=== PATIENT | female | born 1990 | race Caucasian/White ===

== ENCOUNTER 2018-01-05 22:29 | Emergency (ER) | payer BC ==
[2018-01-05 23:02] LABS: Bilirubin Negative (Negative); Blood, Urine Negative (Negative); Clarity CLEAR (Clear); Glucose, Urine (Dipstick) Negative (Negative); Leukocyte Negative (Negative); Nitrite Negative (Negative); Protein, Urine (Dipstick) Negative (Neg-Trace); Specific Gravity, Urine 1.021 (1.002-1.036)
[2018-01-05 23:19] LABS: #Eosinphils 0.1 thou/uL (0.0-0.7); #Lymphocytes 1.3 thou/uL (1.20-3.40); #Monocytes 0.5 thou/uL (0.11-0.59); #Neutrophils 5.3 thou/uL (1.40-6.50); %Basophils 0.5 % (0.0-1.0); %Eosinophils 0.9 % (0.0-10.0); %Monocytes 6.9 % (0.0-10.0); %Neutrophils 73.7 % (42.0-75.0); Hemoglobin 12.6 g/dL (12.0-16.0); Mean Corpuscular HGB CONC 33.7 g/dL (32.0-36.0); Mean Corpuscular Hemoglobin 28.4 pg (27.0-31.0); Mean Corpuscular Volume 84.2 fl (81.0-99.0); Mean Platelet Volume 7.3 fL (7.4-10.4); Platelet Count 290 thou/uL (130-400); Red Blood Cell (RBC) Count 4.42 mill/uL (4.20-5.40); White Blood Cell (WBC) Count 7.2 thou/uL (4.8-10.8)
[2018-01-06 01:32] LABS: ALT (SGPT) 13 U/L (8-55); AST (SGOT) 10 U/L (5-34); Alkaline Phosphatase 119 U/L (40-150); Anion Gap 11 mmol/L (10-20); BUN (Urea Nitrogen) 11 mg/dL (7.0-18.7); Bilirubin, Total 0.3 mg/dL (0.2-1.2); Calc. Creatinine Clearance 0 mL/min (70-130); Carbon Dioxide 25 mmol/L (22-29); Chloride 104 mmol/L (98-107); Estimated GFR-MDRD Greater than 90; Globulin 2.7 g/dL (2.4-3.5); Glucose 96 mg/dL (70-105); Potassium 3.7 mmol/L (3.5-5.1); Protein, Total 6.7 g/dL (6.0-8.3); Sodium 136 mmol/L (136-145)
--- NOTE | 2018-01-06 15:39 | ULT ---
EXAM: US First Trimester, Transabdominal US Duplex Arterial/Venous of the Pelvis, Complete CLINICAL HISTORY: 27 years old, female; Pain; Other: Rlq radiates to lt; Gestational age or lmp: 8wks; TECHNIQUE: Real-time transabdominal obstetrical ultrasound of the maternal pelvis and a first trimester pregnanc y with image documentation. Real-time duplex ultrasound scan of the pelvis integrating B-mode two-dimensional vascular structure, Doppler spectral analysis and color flow Doppler imaging. COMPARISON: No relevant prior studies available. FINDINGS: Transabdominal ultrasound was performed for evaluation of first trimester . Duplex ultrasoun d with color Doppler flow and spectral waveform analysis was also performed for evaluation of pelvic and ovarian blood flow and torsion. Gestation: Single, living intrauterine gestation. heart rate 178 beats per minute. CRL 1.91cm, 8w3d. Yolk sac visualized. Placenta/amniotic fluid: Cannot be adequately evaluated due to the early gestational age. Uterus/cervix: Unremarkable. No myometrial mass. Ovaries: Unremarkable ovaries. No mass. Normal ovarian blood flow. No evidence of torsion. Other findings: Right lower quadrant noncompressible tubular structure measuring up to 1.3 cm in diam eter; although it is difficult to evaluate whether this is a blind ending structure representing the appendix/appendicitis or a bowel loop. Possible trace fluid in the right lower quadrant. IMPRESSION: Single viable intrauterine . Right lower quadrant tubular structure described above; recomme nd clinical correlation and further evaluation with MRI for evaluation of possible acute appendicitis . THIS REPORT CONTAINS FINDINGS THAT MAY BE CRITICAL TO PATIENT CARE. The findings were verbally commun icated via telephone conference with YORDY JOHNSON at 3:16 AM CDT on 01/06/2018. The findings were ack nowledged and understood. Thank you for allowing us to participate in the care of your patient. Dictated and Authenticated by: Uri Griffith MD 01/06/2018 3:39 AM Central Time ([place] & [place]) FINAL REPORT ULTRASOUND PELVIC TRANSVAGINAL: HISTORY: . Vaginal bleeding. COMPARISON: Transvaginal exam of 08/27/14. FINDINGS: Findings and impression are concordant with the preliminary report. The tubular structure in the rig ht lower quadrant has the appearance of the appendix although a blind end is not seen. POS: [facility]
== END 2018-01-06 03:34 | disposition home or self-care (01) ==
LOC: ERS 22:29
DX: O99.89 Other specified diseases and conditions complicating pregnancy, childbirth and the puerperium (principal); R10.84 Generalized abdominal pain; O99.341 Other mental disorders complicating pregnancy, first trimester; F32.9 Major depressive disorder, single episode, unspecified; Z3A.01 Less than 8 weeks gestation of pregnancy
CPT/HCPCS: 36415; 76856; 80053; 81003; 84702; 85025; 86900; 86901

== ENCOUNTER 2018-01-06 11:49 | Emergency (ER) | payer BC ==
[2018-01-06 12:28] LABS: #Eosinphils 0.1 thou/uL (0.0-0.7); #Lymphocytes 1.6 thou/uL (1.20-3.40); #Monocytes 0.6 thou/uL (0.11-0.59); %Basophils 0.3 % (0.0-1.0); %Eosinophils 1.7 % (0.0-10.0); %Lymphocytes 29.9 % (21.0-51.0); %Monocytes 11.2 % (0.0-10.0); %Neutrophils 56.9 % (42.0-75.0); Hemoglobin 12.6 g/dL (12.0-16.0); Mean Corpuscular HGB CONC 33.2 g/dL (32.0-36.0); Mean Corpuscular Hemoglobin 27.7 pg (27.0-31.0); Mean Corpuscular Volume 83.2 fl (81.0-99.0); Mean Platelet Volume 6.9 fL (7.4-10.4); Platelet Count 273 thou/uL (130-400); RBC Distribution Width 12.2 % (11.5-14.5); Red Blood Cell (RBC) Count 4.56 mill/uL (4.20-5.40); White Blood Cell (WBC) Count 5.3 thou/uL (4.8-10.8)
[2018-01-06 12:51] LABS: ALT (SGPT) 12 U/L (8-55); AST (SGOT) 11 U/L (5-34); Albumin 3.8 g/dL (3.5-5.0); Alkaline Phosphatase 107 U/L (40-150); Anion Gap 12 mmol/L (10-20); BUN (Urea Nitrogen) 7 mg/dL (7.0-18.7); Bilirubin, Total 0.4 mg/dL (0.2-1.2); Calc. Creatinine Clearance 0 mL/min (70-130); Calcium 8.6 mg/dL (7.8-10.44); Carbon Dioxide 21 mmol/L (22-29); Chloride 106 mmol/L (98-107); Estimated GFR-MDRD Greater than 90; Glucose 78 mg/dL (70-105); Potassium 3.8 mmol/L (3.5-5.1); Protein, Total 6.8 g/dL (6.0-8.3); Sodium 135 mmol/L (136-145)
== END 2018-01-06 13:40 | disposition home or self-care (01) ==
LOC: ERS 11:49
DX: O99.89 Other specified diseases and conditions complicating pregnancy, childbirth and the puerperium (principal); R10.9 Unspecified abdominal pain; O99.341 Other mental disorders complicating pregnancy, first trimester; F32.9 Major depressive disorder, single episode, unspecified; Z3A.09 9 weeks gestation of pregnancy
CPT/HCPCS: 36415; 84702; 85025; 99284

== ENCOUNTER 2018-06-17 15:06 | Day surgery (SDC) | payer BC ==
[2018-06-17] MEDS: Lactated Ringer's 1,000 ML IV SCH ×2 (15:40→17:37)
[2018-06-17 15:58] VITALS: BMI 36.3
[2018-06-17 16:02] VITALS: BP 125/77
[2018-06-17 16:38] LABS: Bilirubin Negative (Negative); Blood, Urine Negative (Negative); Clarity CLEAR (Clear); Glucose, Urine (Dipstick) Negative (Negative); Leukocyte Negative (Negative); Nitrite Negative (Negative); Protein, Urine (Dipstick) Negative (Neg-Trace); Specific Gravity, Urine 1.022 (1.002-1.036)
[2018-06-17 16:40] LABS: Bacteria/HPF None Seen HPF (None Seen); Hyaline Casts/LPF 4-6 HYALINE CAST LPF (0-3 Hyaline); Pathc Cast-AUWi Flag 0.43 (0-2.49); RBC/HPF None Seen HPF (0-3); Squamous Epithelial 0-3 HPF (0-3); WBC/HPF 0-3 HPF (0-3)
[2018-06-17 16:45] VITALS: TEMP 98.2
[2018-06-17] MEDS ORDERED: Lactated Ringer's 500 ML IV SCH (17:30)
[2018-06-17] MEDS: Acetaminophen 500 MG TAB PO SCH (18:35)
== END 2018-06-17 20:00 | disposition home or self-care (01) ==
LOC: L&D/OP 15:06
PROVIDERS: ATTEND Obstetrics & Gynecology
DX: O47.9 False labor, unspecified (principal); Z79.82 Long term (current) use of aspirin; Z79.899 Other long term (current) drug therapy
CPT/HCPCS: 76815; 81001; 96360; 96361; 99283

== ENCOUNTER 2018-07-23 11:01 | Inpatient (IN) | payer BC, OTHER ==
[2018-07-23] MEDS ORDERED: Butorphanol Tartrate 1 MG/ML VIAL SLOW IVP PRN (11:13)
[2018-07-23] MEDS ORDERED: Promethazine HCl 25 MG/ML VIAL IM PRN ×2 (11:13→21:40)
[2018-07-23] MEDS ORDERED: Docusate 100 MG CAP PO PRN (11:13)
[2018-07-23] MEDS ORDERED: Misoprostol 200 MCG TAB PR PRN (11:13)
[2018-07-23] MEDS ORDERED: Diphenoxylate HCl/Atropine Tablet PO PRN ×2 (11:13)
[2018-07-23] MEDS ORDERED: Ondansetron HCl/PF 4 MG/2 ML Vial IVP PRN ×3 (11:13→22:14)
[2018-07-23] MEDS ORDERED: NS / Oxytocin 40 units/1000ml 1,000 ML IV PRN (11:13)
[2018-07-23] MEDS ORDERED: Acetaminophen 500 MG TAB PO PRN (11:13)
[2018-07-23] MEDS ORDERED: Zolpidem Tartrate 5 MG TAB PO PRN ×3 (11:13→22:33)
[2018-07-23] MEDS ORDERED: HYDROcodone/Acetaminophen 5/325 mg Tablet PO PRN ×2 (11:13)
[2018-07-23] MEDS ORDERED: Ibuprofen 800 MG TAB PO PRN (11:13)
[2018-07-23] MEDS ORDERED: Lidocaine 1% (PF) 30 ML VIAL SC PRN (11:13)
[2018-07-23] MEDS ORDERED: NS w/ Oxytocin 10 units 500 ML IV SCH (11:15)
[2018-07-23] MEDS: Lactated Ringer's 1,000 ML IV SCH ×2 (11:55→19:00)
[2018-07-23 12:14] LABS: Hemoglobin 10.8 g/dL (12.0-16.0); Mean Corpuscular HGB CONC 32.7 g/dL (32.0-36.0); Mean Corpuscular Hemoglobin 24.9 pg (27.0-31.0); Mean Corpuscular Volume 76.2 fL (78.0-98.0); Mean Platelet Volume 8.1 fL (7.4-10.4); Platelet Count 232 thou/uL (130-400); RBC Distribution Width 12.8 % (11.5-14.5); Red Blood Cell (RBC) Count 4.35 mill/uL (4.20-5.40)
[2018-07-23 12:18] VITALS: BMI 37.8
[2018-07-23 12:51] LABS: HBSAg Index 0.19 S/CO (0-0.99); Hep B Surf Ag Non-Reactive S/CO (NonReactive); Syphilis Antibody Nonreactive (Nonreactive); Syphilis Antibody Index 0.04 S/CO (<1.00 Non-Reactive)
[2018-07-23] MEDS ORDERED: hydrALAZINE 20 MG/ML VIAL SLOW IVP PRN (17:15)
[2018-07-23] MEDS: hydrALAZINE 20 MG/ML VIAL SLOW IVP SCH ×2 (17:26→18:22)
[2018-07-23] MEDS ORDERED: Labetalol 100 MG TAB PO SCH ×3 (18:30→18:45)
[2018-07-23] MEDS ORDERED: Fentanyl 4 mcg/Bup 0.1% Cadd 100 ML ONE (21:04)
[2018-07-23] MEDS ORDERED: Fentanyl 100 MCG/2 ML VIAL ONE (21:21)
[2018-07-23] MEDS ORDERED: Lidocaine 1% (PF) 30 ML VIAL ONE (21:38)
[2018-07-23] MEDS ORDERED: NS / Oxytocin 40 units/1000ml 1,000 ML ONE (21:38)
[2018-07-23] MEDS ORDERED: Eucerin (Mineral Oil/Petrolatum,White) 30 gm Jar TOP PRN (21:40)
[2018-07-23] MEDS ORDERED: Naloxone HCl 0.4 mg/ml Vial IVP PRN ×2 (21:40)
[2018-07-23] MEDS ORDERED: Lactated Ringer's 500 ML IV PRN (21:40)
[2018-07-23] MEDS ORDERED: ePHEDrine/0.9% NaCl/PF SYRINGE 50 mg/10 ml SLOW IVP PRN (21:40)
[2018-07-23] MEDS ORDERED: diphenhydrAMINE 50 MG/ML VIAL IVP PRN (21:40)
[2018-07-23] MEDS ORDERED: Acetaminophen 325 MG TAB PO PRN (21:40)
[2018-07-23] MEDS ORDERED: Communication Order-Pharmacy FS SCH (21:45)
[2018-07-23] MEDS ORDERED: Fentanyl 4 mcg/Bupivacaine 0.1% Cassette 100 ML EPIDURAL SCH (21:45)
[2018-07-23] MEDS ORDERED: Lanolin Ointment 7 GM TUBE TOP PRN (22:14)
[2018-07-23] MEDS ORDERED: Preparation H Ointment 28 GM TUBE PR PRN (22:14)
[2018-07-23] MEDS ORDERED: diphenhydrAMINE 25 MG CAP PO PRN (22:14)
[2018-07-23] MEDS ORDERED: Milk Of Magnesia 30 ML UDCUP PO PRN (22:14)
[2018-07-23] MEDS ORDERED: Bisacodyl 10 MG SUPP PR PRN (22:14)
[2018-07-23] MEDS ORDERED: Benzocaine/Menthol 20-0.5% 60 ML CAN TOP PRN (22:14)
[2018-07-23] MEDS ORDERED: Acetaminophen/Codeine 30-300mg Tablet PO PRN ×3 (22:14→22:33)
[2018-07-23] MEDS ORDERED: NS / Oxytocin 40 units/1000ml 1,000 ML IV SCH (22:15)
[2018-07-23] MEDS ORDERED: Witch Hazel-Glycerin 1 EACH JAR TOP PRN (22:21)
[2018-07-23] MEDS: Labetalol 100 MG TAB PO SCH (22:50)
[2018-07-24 05:01] LABS: Mean Corpuscular HGB CONC 33.2 g/dL (32.0-36.0); Mean Corpuscular Hemoglobin 25.1 pg (27.0-31.0); Mean Corpuscular Volume 75.5 fL (78.0-98.0); Platelet Count 189 thou/uL (130-400); RBC Distribution Width 12.9 % (11.5-14.5); Red Blood Cell (RBC) Count 3.59 mill/uL (4.20-5.40)
[2018-07-24] MEDS: Acetaminophen/Codeine 30-300mg Tablet PO PRN ×2 (06:21→08:48)
[2018-07-24] MEDS: Prenatal Vitamin 1 TAB PO SCH (08:47)
[2018-07-24] MEDS: Labetalol 100 MG TAB PO SCH ×2 (08:47→21:08)
[2018-07-24] MEDS: Ferrous Sulfate 325 MG TAB PO SCH ×2 (08:48→17:41)
[2018-07-24] MEDS: Docusate Calcium (SURFAK) 240 MG CAP PO SCH ×2 (08:48→21:08)
[2018-07-24] MEDS: Ibuprofen 800 MG TAB PO SCH ×3 (08:48→22:21)
[2018-07-24] MEDS: Hydrocortisone Acetate 25 MG Suppository PR SCH ×4 (08:50→21:24)
[2018-07-24] MEDS ORDERED: Adacel (T-DAP) 0.5 ML VIAL IM ONE (09:00)
[2018-07-25] MEDS: Ibuprofen 800 MG TAB PO SCH ×2 (06:02→13:59)
[2018-07-25] MEDS ORDERED: Ketorolac Tromethamine 30 MG/ML VIAL ONE (06:58)
[2018-07-25] MEDS: Ferrous Sulfate 325 MG TAB PO SCH (09:39)
[2018-07-25] MEDS: Prenatal Vitamin 1 TAB PO SCH (09:40)
[2018-07-25] MEDS: Docusate Calcium (SURFAK) 240 MG CAP PO SCH (09:40)
[2018-07-25] MEDS: Labetalol 100 MG TAB PO SCH (09:40)
[2018-07-25] MEDS: Hydrocortisone Acetate 25 MG Suppository PR SCH (09:40)
[2018-07-25 09:52] VITALS: BP 128/84; TEMP 98.2
== END 2018-07-25 15:40 | disposition home or self-care (01) | DRG 807 ==
LOC: L&D 11:01 → 3SW 07-24 01:49
PROVIDERS: ADMIT Obstetrics & Gynecology; ATTEND Obstetrics & Gynecology
PROC: 10907ZC Drainage of Amniotic Fluid, Therapeutic from Products of Conception, Via Natural or Artificial Opening (ICD-10-PCS; principal; 2018-07-23)
PROC: 10E0XZZ Delivery of Products of Conception, External Approach (ICD-10-PCS; 2018-07-23)
PROC: 3E033VJ Introduction of Other Hormone into Peripheral Vein, Percutaneous Approach (ICD-10-PCS; 2018-07-23)
DX: O14.14 Severe pre-eclampsia complicating childbirth (principal); Z37.0 Single live birth; Z3A.36 36 weeks gestation of pregnancy; O60.14X0 Preterm labor third trimester with preterm delivery third trimester, not applicable or unspecified; O24.429 Gestational diabetes mellitus in childbirth, unspecified control
CPT/HCPCS: 36415; 51701; 85027; 86780; 86850; 86900; 86901; 87340; J0360; J0595; J1885; J2001; J3010

== ENCOUNTER 2020-07-14 14:53 | Outpatient (CLI) | payer BC | END 2020-07-14 14:54 | disposition home or self-care (01) | LOC: DTY/OP 14:53 | PROVIDERS: ATTEND Surgery | DX: E66.01 Morbid (severe) obesity due to excess calories (principal) | CPT/HCPCS: 97802 ==

== ENCOUNTER 2023-02-08 13:24 | Inpatient (IN) | payer BC ==
[2023-02-08 14:47] VITALS: BMI 25.4
[2023-02-08] MEDS ORDERED: Acetaminophen 650 MG Suppository PR PRN (15:31)
[2023-02-08] MEDS ORDERED: Ondansetron PF 4 MG/2 ML Vial IVP PRN (15:31)
[2023-02-08] MEDS ORDERED: Ondansetron ODT 4 MG TAB PO PRN (15:31)
[2023-02-08] MEDS ORDERED: Calcium Carbonate 500 MG ChewTAB PO PRN (15:31)
[2023-02-08] MEDS ORDERED: Morphine 2 MG/ML VIAL SLOW IVP PRN (15:34)
[2023-02-08] MEDS: Dextrose 5 %-0.45 % NaCl 1,000 ML IV SCH ×2 (15:56→22:34)
[2023-02-08] MEDS ORDERED: Pantoprazole 40 MG VIAL IVP SCH (16:15)
[2023-02-08 16:28] LABS: Anion Gap 13 mmol/L (10-20); BUN (Urea Nitrogen) 11 mg/dL (7.0-18.7); Calc. Creatinine Clearance 114 mL/min (70-130); Carbon Dioxide 24 mmol/L (22-29); Chloride 106 mmol/L (98-107); Estimated GFR 117; Glucose 81 mg/dL (70-105); Magnesium 1.9 mg/dL (1.6-2.6); Potassium 3.6 mmol/L (3.5-5.1); Sodium 139 mmol/L (136-145)
[2023-02-08 16:30] LABS: Lactic Acid 0.9 mmol/L (0.5-2.2)
[2023-02-08 16:32] LABS: Phosphorus 2.9 mg/dL (2.3-4.7)
[2023-02-08] MEDS: D5 1/2 NS w/20 mEq KCL 1,000 ML IV SCH ×2 (16:48→22:34)
[2023-02-08] MEDS: Pantoprazole 40 MG VIAL IVP SCH (19:50)
[2023-02-09] MEDS: Dextrose 5 %-0.45 % NaCl 1,000 ML IV SCH (02:39)
[2023-02-09 06:22] LABS: #Eosinphils 0.3 thou/uL (0.0-0.7); #Lymphocytes 0.9 thou/uL (1.20-3.40); #Monocytes 0.5 thou/uL (0.11-0.59); #Neutrophils 3.1 thou/uL (1.40-6.50); %Eosinophils 6.3 % (0.0-10.0); %Lymphocytes 18.9 % (21.0-51.0); %Monocytes 10.6 % (0.0-10.0); %Neutrophils 64.2 % (42.0-75.0); Hemoglobin 13.6 g/dL (12.0-16.0); Mean Corpuscular HGB CONC 33.4 g/dL (32.0-36.0); Mean Corpuscular Volume 86.9 fl (78.0-98.0); Mean Platelet Volume 7.4 fL (7.4-10.4); Platelet Count 190 10x3/uL (130-400); RBC Distribution Width 11.1 % (11.5-14.5); White Blood Cell (WBC) Count 4.8 10x3/uL (4.8-10.8)
[2023-02-09 07:35] LABS: ALT (SGPT) 8 U/L (8-55); AST (SGOT) 15 U/L (5-34); Albumin 3.8 g/dL (3.5-5.0); Alkaline Phosphatase 98 U/L (40-110); Anion Gap 12 mmol/L (10-20); BUN (Urea Nitrogen) 5 mg/dL (7.0-18.7); Bilirubin, Total 0.5 mg/dL (0.2-1.2); Calc. Creatinine Clearance 113 mL/min (70-130); Calcium 8.4 mg/dL (7.8-10.44); Carbon Dioxide 24 mmol/L (22-29); Chloride 105 mmol/L (98-107); Estimated GFR 116; Globulin 2.5 g/dL (2.4-3.5); Glucose 101 mg/dL (70-105); Magnesium 1.8 mg/dL (1.6-2.6); Phosphorus 3.6 mg/dL (2.3-4.7); Potassium 3.5 mmol/L (3.5-5.1); Protein, Total 6.3 g/dL (6.0-8.3); Sodium 137 mmol/L (136-145)
[2023-02-09] MEDS ORDERED: Magnesium 2 GM/50 ML(in water) 2 GM in Premix Bag 1 BAG IVPB SCH (07:45)
[2023-02-09] MEDS ORDERED: Electrolyte Replacement Protocol 1 EACH FS SCH (07:45)
[2023-02-09] MEDS ORDERED: Acetaminophen 325 MG TAB PO PRN (07:58)
[2023-02-09] MEDS ORDERED: Ketorolac Tromethamine 30 MG/ML VIAL IVP SCH (08:00)
[2023-02-09] MEDS ORDERED: Aspirin/APAP/Caffeine Tab (Excedrin Migraine) PO PRN (08:23)
[2023-02-09] MEDS: Pantoprazole 40 MG VIAL IVP SCH (08:44)
[2023-02-09] MEDS: Potassium Chloride 20 MEQ in Premix Bag 1 BAG IVPB SCH ×2 (10:59→15:45)
[2023-02-09 12:20] VITALS: BP 138/92; TEMP 98
[2023-02-09] MEDS: D5 1/2 NS w/20 mEq KCL 1,000 ML IV SCH (15:44)
== END 2023-02-09 16:16 | disposition home or self-care (01) | DRG 395 ==
LOC: T4-A 14:15
PROVIDERS: ADMIT Internal Medicine; ATTEND Internal Medicine
DX: K46.0 Unspecified abdominal hernia with obstruction, without gangrene (principal); Z98.84 Bariatric surgery status; E86.0 Dehydration; F41.9 Anxiety disorder, unspecified; E66.9 Obesity, unspecified; F32.A Depression, unspecified; Z88.8 Allergy status to other drugs, medicaments and biological substances; Z79.899 Other long term (current) drug therapy; Z68.25 Body mass index [BMI] 25.0-25.9, adult
CPT/HCPCS: 36415; 74018; 74250; 80048; 80053; 83605; 83735; 84100; 85025; C9113; J1885; J2405; J3475; J3480; J7042